=== PATIENT | female | born 1985 | race Caucasian/White ===

== ENCOUNTER 2016-11-25 10:39 | Inpatient (IN) | payer OTHER ==
[2016-11-25 11:00] VITALS: BMI 44.6
[2016-11-25] MEDS ORDERED: BRETHINE INJ 1 MG VIAL SC ONE (11:02)
[2016-11-25] MEDS ORDERED: NS 1000 ML 1,000 ML ONE (11:02)
[2016-11-25 11:05] LABS: BILIRUBIN,URINE NEGATIVE (NEGATIVE); BLOOD/HEMOGLOBIN,URINE 4+ (NEGATIVE); GLUCOSE, URINE NEGATIVE (NEGATIVE); KETONES,URINE NEGATIVE (NEGATIVE); LEUKOCYTE ESTERASE ,URINE 1+ (NEGATIVE); NITRITES,URINE NEGATIVE (NEGATIVE); PROTEIN,URINE 3+ (NEGATIVE); UROBILINOGEN,URINE NORMAL (NORMAL)
[2016-11-25 11:12] LABS: AMNISURE ROM TEST NO MEMBRANES RUPTURE (NO RUPTURE)
[2016-11-25] MEDS ORDERED: ANCEF VIAL 1 GM 1 GM in NS 50 ML IV + SPIKE MINIBAG* 50 ML IV PRN (11:24)
[2016-11-25 11:29] LABS: APPEARANCE,URINE SLIGHTLY HAZY (CLEAR); BACTERIA,URINE NEGATIVE /HPF (NEGATIVE); COLOR,URINE PALE YELLOW (YELLOW); SQUAMOUS EPITHELIAL CELL,UR RARE /HPF (NEGATIVE)
[2016-11-25] MEDS ORDERED: D5 1/2 NS 1000 ML 1,000 ML IV ONE (11:57)
[2016-11-25] MEDS ORDERED: ANCEF VIAL 1 GM ONE (11:57)
[2016-11-25] MEDS ORDERED: NS 50 ML IV + SPIKE MINIBAG* 50 ML IV ONE (11:57)
[2016-11-25 11:58] LABS: BASOPHILS % (AUTO) 0.3 % (0.2-1.0); EOSINOPHILS # (AUTO) 0.2 x10^3/uL (0.0-0.2); EOSINOPHILS % (AUTO) 1.4 % (0.9-2.9); HEMOGLOBIN 10.6 g/dL (12.0-16.0); LYMPHOCYTES # (AUTO) 2.4 X10^3/uL (1.3-2.9); LYMPHOCYTES % (AUTO) 17.9 % (21.0-51.0); MEAN CORPUSCULAR HEMOGLOBIN 30.4 pg (27.0-34.0); MEAN CORPUSCULAR HGB CONC 34.3 g/dL (33.0-35.0); MEAN CORPUSCULAR VOLUME 88.5 fL (80.0-100.0); MEAN PLATELET VOLUME 10.7 fL (7.4-11.0); MONOCYTES # (AUTO) 0.9 x10^3/uL (0.3-0.8); MONOCYTES % (AUTO) 6.9 % (0.0-13.0); NEUTROPHILS # (AUTO) 9.7 x10^3/uL (2.2-4.8); NEUTROPHILS % (AUTO) 73.5 % (42.0-75.0); PLATELET COUNT 222 X10^3/uL (150.0-450.0); RED BLOOD COUNT 3.51 X10^6/uL (3.5-5.4); RED CELL DISTRIBUTION WIDTH 13.3 % (11.6-16.5); WHITE BLOOD COUNT 13.2 X10^3/uL (3.6-10.0)
[2016-11-25] MEDS ORDERED: DURAMORPH ONE (12:06)
[2016-11-25 12:08] LABS: ALANINE AMINOTRANSFERASE 12 Units/L (12-78); ALBUMIN 2.2 g/dL (3.4-5.0); ALKALINE PHOSPHATASE 140 Units/L (46-116); ASPARTATE AMINO TRANSFERASE 12 Units/L (15-37); BLOOD UREA NITROGEN 4 mg/dL (7-18); CALCIUM 8.2 mg/dL (8.5-10.1); CARBON DIOXIDE 21.5 mmol/L (21-32); CHLORIDE 107 mmol/L (98-107); COR CA(FOR HYPOALB) 9.6 mg/dL (8.5-10.1); CREATININE 0.57 mg/dL (0.55-1.02); SODIUM 140 mmol/L (136-145); TOTAL PROTEIN 5.8 g/dL (6.4-8.2); eGFR BLACK RACES > 60 (>60); eGFR NON BLACK RACES > 60 (>60)
[2016-11-25 12:38] LABS: BILIRUBIN,URINE NEGATIVE (NEGATIVE); BLOOD/HEMOGLOBIN,URINE 3+ (NEGATIVE); GLUCOSE, URINE NEGATIVE (NEGATIVE); KETONES,URINE NEGATIVE (NEGATIVE); LEUKOCYTE ESTERASE ,URINE 1+ (NEGATIVE); NITRITES,URINE NEGATIVE (NEGATIVE); PROTEIN,URINE 3+ (NEGATIVE); UROBILINOGEN,URINE NORMAL (NORMAL)
[2016-11-25 12:53] LABS: APPEARANCE,URINE SLIGHTLY HAZY (CLEAR); BACTERIA,URINE TRACE /HPF (NEGATIVE); COLOR,URINE YELLOW (YELLOW); MUCUS,URINE FEW /HPF (NEGATIVE); SQUAMOUS EPITHELIAL CELL,UR FEW /HPF (NEGATIVE)
[2016-11-25 13:10] LABS: URIC ACID 4.1 mg/dL (2.6-6.0)
[2016-11-25] MEDS ORDERED: NS IRRIGATION 1000 ML 1,000 ML IR ONE (13:30)
[2016-11-25] MEDS ORDERED: D5 1/2 NS 1L W PITOCIN 20 UNITS/L 20 UNITS/1,000 ML BAG IV ONE (13:41)
[2016-11-25] MEDS ORDERED: BENADRYL INJ 50 MG VIAL IVP PRN ×2 (13:59→14:03)
[2016-11-25] MEDS ORDERED: ZOFRAN INJ 4 MG VIAL IVP PRN (13:59)
[2016-11-25] MEDS ORDERED: REGLAN INJ 10 MG VIAL IVP PRN ×2 (13:59→14:03)
[2016-11-25] MEDS ORDERED: PHENERGAN INJ 25 MG IVP PRN ×2 (13:59→14:03)
[2016-11-25] MEDS ORDERED: PERCOCET TAB 5/325 MG PO PRN (14:03)
[2016-11-25] MEDS ORDERED: AMBIEN PO PRN (14:03)
[2016-11-25] MEDS ORDERED: NARCAN INJ IVP PRN (14:03)
[2016-11-25] MEDS ORDERED: TORADOL 30 MG VIAL IVP PRN (14:03)
[2016-11-25] MEDS ORDERED: MILK OF MAGNESIA PO PRN (14:03)
[2016-11-25] MEDS ORDERED: DERMOPLAST SPRAY TOP PRN (14:03)
[2016-11-25] MEDS ORDERED: D5 1/2 NS 1000 ML 1,000 ML with PITOCIN 20 UNITS IV SCH ×2 (15:00)
[2016-11-25] MEDS ORDERED: EPHEDRINE SULFATE INJ ONE (15:29)
[2016-11-25] MEDS ORDERED: PITOCIN ONE (15:29)
[2016-11-25] MEDS: ZOFRAN INJ 4 MG VIAL IVP PRN (16:11)
[2016-11-25] MEDS: NORVASC TAB 10 MG PO SCH (16:45)
[2016-11-25] MEDS: COZAAR PO SCH (16:45)
[2016-11-25] MEDS: 1/2 NS IV SCH ×2 (20:46→21:00)
[2016-11-25] MEDS: ZANTAC PO SCH (20:46)
[2016-11-25] MEDS: D5 IV SCH ×2 (20:46→21:00)
[2016-11-26] MEDS: D5 IV SCH (01:45)
[2016-11-26] MEDS: 1/2 NS IV SCH (01:45)
[2016-11-26] MEDS: ZOFRAN INJ 4 MG VIAL IVP PRN (02:00)
[2016-11-26 04:49] LABS: HEMOGLOBIN 9.6 g/dL (12.0-16.0)
[2016-11-26] MEDS: COZAAR PO SCH (09:26)
[2016-11-26] MEDS: PRENATAL PLUS PO SCH (09:26)
[2016-11-26] MEDS: NORVASC TAB 10 MG PO SCH (09:26)
[2016-11-26] MEDS: ZANTAC PO SCH ×2 (09:26→21:00)
[2016-11-26] MEDS: MOTRIN TAB 800 MG PO PRN (11:51)
[2016-11-26 16:50] LABS: CREATININE 0.56 mg/dL (0.55-1.02)
[2016-11-26 16:57] LABS: TOTAL PROTEIN,URINE 123.7 mg/dl (0-11.9)
[2016-11-26 17:06] LABS: CREATININE CLEARANCE,URINE 223.2 ml/min (87-107); CREATININE,URINE 105.88 mg/dL (29-226)
[2016-11-27] MEDS: MOTRIN TAB 800 MG PO PRN (00:02)
[2016-11-27] MEDS: PRENATAL PLUS PO SCH (08:17)
[2016-11-27] MEDS: NORVASC TAB 10 MG PO SCH (08:17)
[2016-11-27] MEDS: ZANTAC PO SCH (08:17)
[2016-11-27] MEDS: COZAAR PO SCH (08:17)
[2016-11-27] MEDS ORDERED: PERCOCET TAB 5/325 MG PO PRN (09:39)
[2016-11-27] MEDS ORDERED: ZIAC 5/6.25 MG PO SCH (10:00)
[2016-11-27] MEDS ORDERED: CATAPRES TAB 0.1 MG PO ONE (12:29)
[2016-11-27 13:49] VITALS: BP 169/96
== END 2016-11-27 13:45 | disposition home or self-care (01) | DRG 765 ==
LOC: ER 10:39 → LD 11:26 → MED/SURG 14:34
PROVIDERS: ADMIT Obstetrics & Gynecology Obstetrics; ATTEND Obstetrics & Gynecology Obstetrics
PROC: 10D00Z1 Extraction of Products of Conception, Low, Open Approach (ICD-10-PCS; principal; 2016-11-25 11:15)
DX: O60.14X1 Preterm labor third trimester with preterm delivery third trimester, fetus 1 (principal); O60.14X2 Preterm labor third trimester with preterm delivery third trimester, fetus 2; Z37.2 Twins, both liveborn; O10.913 Unspecified pre-existing hypertension complicating pregnancy, third trimester; O34.211 Maternal care for low transverse scar from previous cesarean delivery; N85.8 Other specified noninflammatory disorders of uterus; Z3A.36 36 weeks gestation of pregnancy; O30.003 Twin pregnancy, unspecified number of placenta and unspecified number of amniotic sacs, third trimester
CPT/HCPCS: 36415; 51702; 80053; 81001; 81050; 82565; 82570; 83615; 84112; 84157; 84450; 84460; 84550; 85014; 85018; 85025; 85384; 85610; 85730; 86592; 86850; 86900; 86901; 96365; 99284; A4216; A4222; S0197; J0690; J1885; J2405; J2590; J3105; J7042

== ENCOUNTER 2018-01-04 15:56 | Inpatient (IN) ==
[~2018-01-04 15:56] MED LIST: NS IRRIGATION 1000 ML ONE
[2018-01-04 16:42] LABS: BASOPHILS # (AUTO) 0.1 X10^3/uL (0.0-0.1); BASOPHILS % (AUTO) 0.6 % (0.2-1.0); EOSINOPHILS # (AUTO) 0.1 x10^3/uL (0.0-0.2); EOSINOPHILS % (AUTO) 1.2 % (0.9-2.9); HEMOGLOBIN 12.1 g/dL (12.0-16.0); LYMPHOCYTES # (AUTO) 1.9 X10^3/uL (1.3-2.9); LYMPHOCYTES % (AUTO) 16.3 % (21.0-51.0); MEAN CORPUSCULAR HEMOGLOBIN 30.5 pg (27.0-34.0); MEAN CORPUSCULAR HGB CONC 34.5 g/dL (33.0-35.0); MEAN CORPUSCULAR VOLUME 88.5 fL (80.0-100.0); MEAN PLATELET VOLUME 10.6 fL (7.4-11.0); MONOCYTES # (AUTO) 0.7 x10^3/uL (0.3-0.8); MONOCYTES % (AUTO) 6.3 % (0.0-13.0); NEUTROPHILS # (AUTO) 8.6 x10^3/uL (2.2-4.8); NEUTROPHILS % (AUTO) 75.6 % (42.0-75.0); PLATELET COUNT 242 X10^3/uL (150.0-450.0); RED BLOOD COUNT 3.96 X10^6/uL (3.5-5.4); RED CELL DISTRIBUTION WIDTH 13.6 % (11.6-16.5); WHITE BLOOD COUNT 11.4 X10^3/uL (3.6-10.0)
[2018-01-04 16:46] VITALS: BMI 46.5
[2018-01-04 16:54] LABS: ALANINE AMINOTRANSFERASE 14 Units/L (12-78); ALBUMIN 2.2 g/dL (3.4-5.0); ALKALINE PHOSPHATASE 153 Units/L (46-116); ASPARTATE AMINO TRANSFERASE 10 Units/L (15-37); BLOOD UREA NITROGEN 5 mg/dL (7-18); CALCIUM 8.6 mg/dL (8.5-10.1); CHLORIDE 104 mmol/L (98-107); CREATININE 0.53 mg/dL (0.55-1.02); SODIUM 138 mmol/L (136-145); TOTAL PROTEIN 6.3 g/dL (6.4-8.2); URIC ACID 4.1 mg/dL (2.6-6.0); eGFR NON BLACK RACES > 60 (>60)
[2018-01-04] MEDS ORDERED: LR 1000 ML IV 1,000 ML IV ONE (17:05)
[2018-01-04] MEDS: LR 1000 ML IV 1,000 ML IV SCH (17:10)
--- NOTE | 2018-01-04 17:43 | US ---
Limited abdominal ultrasound Indication: Preeclampsia Comparison: 09/24/2017 Technique: Sonographic images of the pelvis were obtained with focused evaluation of the fetus per protocol, including biophysical profile score. Findings: There is single intrauterine fetus in cephalic presentation with a heart rate of 144 beats per minute. An anterior placenta is noted (Please note that the technologist's sheet states that there is a previa; however, this was circled in error and there is no evidence for placenta previa). The COURTNEY measured 18.3 cm. Normal breathing movement, body movement, and tone was observed. Impression: Single living intrauterine measuring 36 weeks, 2 days, for an estimated delivery of 01/30/2018. Biophysical profile score 8/8. Reported By:
[2018-01-04] MEDS ORDERED: APRESOLINE INJ 20 MG VIAL ONE (18:30)
[2018-01-04] MEDS: APRESOLINE INJ 20 MG VIAL IVP PRN (18:35)
[2018-01-04] MEDS: MAGNESIUM SULFATE 40 GRAMS IV 40 G/1,000 ML BAG IV PRN (21:35)
[2018-01-05 06:06] LABS: BASOPHILS % (AUTO) 0.4 % (0.2-1.0); EOSINOPHILS # (AUTO) 0.2 x10^3/uL (0.0-0.2); EOSINOPHILS % (AUTO) 1.6 % (0.9-2.9); HEMATOCRIT 34.6 % (36.0-47.0); HEMOGLOBIN 11.9 g/dL (12.0-16.0); LYMPHOCYTES % (AUTO) 19.5 % (21.0-51.0); MEAN CORPUSCULAR HEMOGLOBIN 30.7 pg (27.0-34.0); MEAN CORPUSCULAR HGB CONC 34.4 g/dL (33.0-35.0); MEAN CORPUSCULAR VOLUME 89.1 fL (80.0-100.0); MEAN PLATELET VOLUME 10.7 fL (7.4-11.0); MONOCYTES # (AUTO) 0.6 x10^3/uL (0.3-0.8); MONOCYTES % (AUTO) 5.5 % (0.0-13.0); NEUTROPHILS # (AUTO) 7.4 x10^3/uL (2.2-4.8); PLATELET COUNT 235 X10^3/uL (150.0-450.0); RED BLOOD COUNT 3.88 X10^6/uL (3.5-5.4); RED CELL DISTRIBUTION WIDTH 13.9 % (11.6-16.5); WHITE BLOOD COUNT 10.1 X10^3/uL (3.6-10.0)
[2018-01-05 06:26] LABS: ALANINE AMINOTRANSFERASE 14 Units/L (12-78); ALBUMIN 2.1 g/dL (3.4-5.0); ALKALINE PHOSPHATASE 146 Units/L (46-116); ASPARTATE AMINO TRANSFERASE 11 Units/L (15-37); BLOOD UREA NITROGEN 5 mg/dL (7-18); CARBON DIOXIDE 20.8 mmol/L (21-32); CHLORIDE 104 mmol/L (98-107); COR CA(FOR HYPOALB) 9.5 mg/dL (8.5-10.1); CREATININE 0.52 mg/dL (0.55-1.02); SODIUM 138 mmol/L (136-145); TOTAL PROTEIN 6.2 g/dL (6.4-8.2); URIC ACID 4.3 mg/dL (2.6-6.0); eGFR NON BLACK RACES > 60 (>60)
[2018-01-05] MEDS ORDERED: LR 1000 ML IV 1,000 ML IV ONE (13:38)
[2018-01-05] MEDS ORDERED: DURAMORPH ONE (13:54)
[2018-01-05] MEDS ORDERED: ANCEF VIAL 1 GRAM ONE (14:38)
[2018-01-05] MEDS ORDERED: NEO-SYNEPHRINE INJ ONE (15:25)
[2018-01-05] MEDS ORDERED: PITOCIN ONE (15:25)
[2018-01-05] MEDS ORDERED: VERSED ONE (15:25)
[2018-01-05] MEDS ORDERED: EPHEDRINE SULFATE INJ ONE (15:25)
[2018-01-05] MEDS ORDERED: ZOFRAN INJ 4 MG VIAL IVP PRN ×2 (15:40→15:43)
[2018-01-05] MEDS ORDERED: PHENERGAN INJ 25 MG IVP PRN (15:40)
[2018-01-05] MEDS ORDERED: BENADRYL INJ 50 MG VIAL IVP PRN (15:40)
[2018-01-05] MEDS ORDERED: REGLAN INJ 10 MG VIAL IVP PRN (15:40)
[2018-01-05] MEDS ORDERED: NARCAN INJ IVP PRN (15:43)
[2018-01-05] MEDS ORDERED: TORADOL 30 MG VIAL IVP PRN (15:43)
[2018-01-05] MEDS ORDERED: D5 1/2 NS 1000 ML 1,000 ML with PITOCIN 20 UNITS IV SCH ×2 (16:00)
[2018-01-05] MEDS: NICOTINE PATCH TD SCH (17:04)
[2018-01-05] MEDS: MAGNESIUM SULFATE 40 GRAMS IV 40 G/1,000 ML BAG IV PRN (17:05)
[2018-01-05] MEDS: APRESOLINE INJ 20 MG VIAL IVP PRN (17:44)
[2018-01-05] MEDS: BENADRYL INJ 50 MG VIAL IVP PRN (17:48)
[2018-01-05] MEDS: LR 1000 ML IV 1,000 ML IV SCH (21:00)
[2018-01-06 03:29] LABS: HEMATOCRIT 31.1 % (36.0-47.0); HEMOGLOBIN 10.5 g/dL (12.0-16.0)
[2018-01-06] MEDS ORDERED: ZESTRIL TAB 20 MG ONE (09:43)
[2018-01-06] MEDS ORDERED: TOPROL XL PO ONE (09:43)
[2018-01-06] MEDS: ZESTRIL TAB 20 MG PO SCH (09:53)
[2018-01-06] MEDS: NICOTINE PATCH TD SCH (09:53)
[2018-01-06] MEDS: TOPROL XL PO SCH (09:53)
[2018-01-06] MEDS: PERCOCET TAB 5/325 MG PO PRN ×3 (11:33→23:18)
[2018-01-06] MEDS: BENADRYL INJ 50 MG VIAL IVP PRN (13:40)
[2018-01-07] MEDS: PERCOCET TAB 5/325 MG PO PRN ×2 (06:17→11:43)
[2018-01-07] MEDS ORDERED: ZESTRIL TAB 20 MG ONE (08:50)
[2018-01-07] MEDS ORDERED: TOPROL XL PO ONE (08:51)
[2018-01-07] MEDS: TOPROL XL PO SCH (09:10)
[2018-01-07] MEDS: ZESTRIL TAB 20 MG PO SCH (09:10)
[2018-01-07] MEDS: NICOTINE PATCH TD SCH (09:11)
[2018-01-07 14:06] VITALS: BP 199/97
== END 2018-01-07 14:00 | disposition home or self-care (01) | DRG 783 ==
LOC: ICU 16:02
PROVIDERS: ADMIT Obstetrics & Gynecology Obstetrics; ATTEND Obstetrics & Gynecology Obstetrics
DX: O45.8X3 Other premature separation of placenta, third trimester; Z30.2 Encounter for sterilization; O60.14X0 Preterm labor third trimester with preterm delivery third trimester, not applicable or unspecified; Z3A.36 36 weeks gestation of pregnancy; O12.23 Gestational edema with proteinuria, third trimester; Z37.0 Single live birth; O11.3 Pre-existing hypertension with pre-eclampsia, third trimester
CPT/HCPCS: 36415; 76818; 80053; 83735; 84157; 84550; 85014; 85018; 85025; 86850; 86900; 86901; A4216; A4222; J0360; J0690; J1200; J2250; J2370; J2405; J2590; J3475; J3490; J7120; S5010